=== PATIENT | female | born 1945 | race Caucasian/White ===

== ENCOUNTER → 2023-08-12 07:01 | Outpatient (REF) | payer MEDICARE, BC, SELFPAY | LOC: MRI 07:01 | PROVIDERS: ATTENDING PHYSICIAN Nurse Practitioner | DX: M79.605 Pain in left leg (principal) | CPT/HCPCS: 73721 ==

== ENCOUNTER → 2023-08-25 14:27 | Outpatient (REF) | payer MEDICARE, BC, SELFPAY | LOC: RAD 14:27 | PROVIDERS: ATTENDING PHYSICIAN Nurse Practitioner | DX: M79.605 Pain in left leg (principal) | CPT/HCPCS: 76882 ==

== ENCOUNTER → 2023-09-15 14:32 | Outpatient (REF) | payer MEDICARE, BC, SELFPAY | LOC: WDC 14:32 | PROVIDERS: ATTENDING PHYSICIAN Nurse Practitioner | DX: Z12.31 Encounter for screening mammogram for malignant neoplasm of breast (principal) | CPT/HCPCS: 77063; 77067 ==

== ENCOUNTER 2024-04-12 06:31 | Emergency (ER) | payer MEDICARE, BC, SELFPAY ==
[2024-04-12 06:44] VITALS: BP 133/86
--- NOTE | 2024-04-12 07:26 | ED.MUSCINJ ---
HPI-Injury
<JAMILA Frank - Last Filed: 04/12/24 09:00>
General
Chief Complaint: Fall
Source: patient
Time Seen by Provider: 04/12/24 07:10
History of Present Illness-Injury
Initial Injury comments:
This is a 78 y/o female without significant PMH who presents to the emergency department s/p fall. She fell out of bed @ 5:30am this morning onto the hardwood floor. She describes falling onto her L side but her head hit the hardwood first. She has
a hematoma on the L superior forehead without any active external bleeding. She denies any LOC, headache, neck pain and change in vision. Admits to L flank pain localized to the L lateral inframammary area. She has pain with inspiration. She
describes the pain as achy and severity of 5/10. Pt is not on blood thinners.
Past History
<JAMILA Frank - Last Filed: 04/12/24 09:00>
Past History
ED Past Medical History: Other (Kidney stones)
ED Past Surgical History: Bowel resection and Orthopedic (R rotator cuff repair 08/[address] Marquez here)
Social History
Tobacco: Non-smoker
Alcohol: Occasional
Drug: None
Personal:
Living: with family
Employment: Retired
Phy Exam
<Manuela Hernandez MIRANDA - Last Filed: 04/12/24 09:00>
Physical Exam
Physical Exam:
Skin: [place], soft, well-hydrated; skin turgor with instant recoil
Head: Scalp, pink freely moveable without tenderness; hematoma at L superior forehead with mild abrasion
Eyes: PERRLA; EOMI; no lid lag; red reflex present
Chest/Resp: muscle and respiratory effort symmetric without use of accessory muscles; vesicular breath sounds without adventitious sounds; even, quiet breathing; no ecchymosis or swelling; no tenderness to palpation
Heart: No lifts or heaves visible; regular rate and rhythm; No murmurs, rubs or gallops
PV: radial, dorsalis pedis and posterior tibial pulses all intact bilaterally
Neuro: AAO x 3
Injury Course
<ST ZacWA - Last Filed: 04/12/24 09:00>
Orders/Labs/Results
Orders:
Orders
04/12/24 06:49
CT Head W/o Iv Contrast Urgent
Comment:
Reason For Exam: fall
04/12/24 06:53
Ribs, Left 3 View W/PA Chest CR [CR Ribs-left 3 Vw W/pa Chest] Urgent
Comment:
Reason For Exam: fall
04/12/24 09:00
Acetaminophen [Tylenol] 1,000 mg PO NOW STA
<Jack Decker DO - Last Filed: 04/12/24 09:02>
Orders/Labs/Results
Orders:
Orders
04/12/24 06:49
CT Head W/o Iv Contrast Urgent
Comment:
Reason For Exam: fall
04/12/24 06:53
Ribs, Left 3 View W/PA Chest CR [CR Ribs-left 3 Vw W/pa Chest] Urgent
Comment:
Reason For Exam: fall
04/12/24 09:00
Acetaminophen [Tylenol] 1,000 mg PO NOW STA
<Manuela Hernandez [facility] - Last Filed: 04/12/24 09:00>
MDM/Problems Addressed
MDM/Problems Addressed:
Pt is an 78 y/o female who reports a fall out of bed this morning onto her L side and has associated L superior forehead hematoma and L flank pain. Pt denies LOC, TORRES, change in vision and any neck pain. Will obtain head CT to r/o bleed. Pt with L
flank pain and increased pain with inspiration. Will obtain xray of L ribs to r/o fracture.
Update: Head CT shows small L frontal scalp hematoma. Xray of ribs without fracture. Pt to be discharged and advised to take Tylenol at home.
<JAMILA Frank - Last Filed: 04/12/24 09:00>
*Critical Care Note
Total Time (30-74mins, 75-104mins- exclusive of procedures): Not Applicable
ED Attending Note
<JAMILA Frank - Last Filed: 04/12/24 09:00>
-
Portions of this chart may have been created with voice recognition software.� Occasional wrong word or��sound alike� substitutions may have occurred due to the inherent limitations of voice recognition software.
<Jack Decker DO - Last Filed: 04/12/24 09:02>
ED Attending Note
Patient seen and examined by attending physician: Yes
I performed a history and physical exam of patient and discussed management with resident, I reviewed resident's note and agree with documented findings and plan of care.: Yes
ED Attending Note:
I evaluated the patient at bedside. The patient does have a left-sided forehead hematoma. CAT scan of the brain was obtained given her advanced age and there is no sign of intracranial hemorrhage. She also reports pain to the lower anterior left
side of the chest. There is no left upper quadrant tenderness on physical examination. Plain film imaging of the ribs and chest are unremarkable. She declined narcotic analgesia. Gave Tylenol for pain. I personally reviewed imaging studies. I
reviewed old records, the patient was seen here for physical therapy in 2017 related to neck pain. On reassessment at 9 AM, the patient is comfortable in appearance but does report some discomfort with breathing.
Discharge Plan
Departure
Patient Disposition: Home (Routine Discharge)
Date of Disposition: 04/12/24
Time of Disposition: 08:58
Patient with high blood pressure during this ER visit?: Yes
Discharge Problem:
Hematoma, Head injury, Chest wall contusion
Instructions: Head Injury in Adults (DC), Contusion (DC), BLOOD PRESSURE
Prescriptions:
No Action
multivitamin [Daily Multiple] 1 EACH tablet
1 ea PO DAILY
hydrocodone-acetaminophen [Vicodin] 1 EACH tablet
1 ea PO Q4HPRN PRN (Reason: Pain) Qty: 10 0RF
tamsulosin 0.4 MG capsule
0.4 mg PO DAILY Qty: 10 0RF
ondansetron 4 MG tablet,disintegrating
4 mg PO TIDPRN PRN (Reason: NAUSEA) Qty: 10 0RF
hydrocodone-acetaminophen [Vicodin] 1 EACH tablet
1 ea PO Q6HPRN PRN (Reason: pain) Qty: 15 0RF
Referrals:
Ibeth Barbour CRNP [Family Provider] -
Activity Restrictions/Additional Instructions:
The CAT scan of the brain shows no bleeding around the brain. The x-ray of the ribs and chest showed no sign of rib fracture or injury to the lung. Tylenol would be safest for pain. You can take 2 extra strength Tylenol 4 times per day over the
next few days. Return here if worse or other concerns. Follow-up your primary care doctor.
Interventions
Interventions:
*Risk Screen - Suicide Last Done: 04/12/24 06:44
*General Assessment Last Done: 04/12/24 06:44
*Neglect/Abuse Screening Last Done: 04/12/24 06:44
*ED COVID-19 Vaccine History Last Done: 04/12/24 06:44
ED-Musculoskeletal Assessment Last Done: 04/12/24 07:44
ED- Neurological Assessment Last Done: 04/12/24 07:42
ED-Skin Assessment Last Done: 04/12/24 07:43
Discharge Date and Time
Print Language: ROMANIAN
[2024-04-12 07:40] VITALS: BP 164/76
[2024-04-12 07:41] VITALS: BMI 23.8
[2024-04-12 08:00] VITALS: BP 156/87
[2024-04-12 09:00] VITALS: BP 147/80
[2024-04-12] MEDS: TYLENOL 1000 MG PO (09:10)
[2024-04-12 10:30] VITALS: BP 147/80
== END 2024-04-12 10:30 | disposition home or self-care (01) ==
LOC: EMR 06:31
PROVIDERS: EMERGENCY PHYSICIAN Emergency Medicine; FAMILY PHYSICIAN Nurse Practitioner
DX: S00.83XA Contusion of other part of head, initial encounter (principal); S20.219A Contusion of unspecified front wall of thorax, initial encounter; S00.81XA Abrasion of other part of head, initial encounter; W06.XXXA Fall from bed, initial encounter
CPT/HCPCS: 99284; 70450; 71101

== ENCOUNTER → 2024-09-19 10:59 | Outpatient (REF) | payer MEDICARE, BC, SELFPAY | LOC: WDC 10:59 | PROVIDERS: ATTENDING PHYSICIAN Nurse Practitioner | DX: Z12.31 Encounter for screening mammogram for malignant neoplasm of breast (principal) | CPT/HCPCS: 77063; 77067 ==

== ENCOUNTER 2024-10-13 01:58 | Emergency (ER) | payer MEDICARE, BC, SELFPAY ==
[2024-10-13 01:58] VITALS: BP 145/93
--- NOTE | 2024-10-13 02:34 | ED.GENMED ---
History of Present Illness
General
Chief Complaint: Eye Problems
Source: patient
Exam Limitations: none
Time Seen by Provider: 10/13/24 02:13
Nursing documentation reviewed up to this point in time: agreed with
History of Present Illness
History of Present Illness:
Patient presents to ED secondary to persistent left eye irritation, after accidentally applying 2-3 drops of her steroid solution into her eye, instead of her normal eyedrops. Since then, she has irrigated the affected eye with water, with mild
improvement. Denies eye trauma. Denies previous history of similar symptoms. Denies blurred vision. Denies headache.
Past History
Past History
ED Past Medical History: Other (Kidney stones)
ED Past Surgical History: Bowel resection and Orthopedic (R rotator cuff repair 08/[address] Marquez here)
Social History
Tobacco: Non-smoker
Alcohol: Occasional
Drug: None
Personal:
Living: with family
Employment: Retired
Review of Systems
Review of Systems
Allergies reviewed?: Yes
All Other Systems: ROS reviewed and negative except as documented in HPI and ROS
Constitutional: Reports no symptoms
EENT: Reports other (Eye pain with redness)
Musculoskeletal: Reports no symptoms
Skin: Reports no symptoms
Neurological: Reports no symptoms; Denies dizzy or headache
Phy Exam
Physical Exam
Physical Exam:
Physical Exam
General: mild distress, not acutely ill. afebrile.
Head: nc/at. eomi. perrla. conjunctiva normal, without erythema.
Neck: supple. no meningeal signs.
Neuro: alert and oriented x 3. no focal neurological deficits
Skin: no rash
Psychiatric: well kept. interactive and cooperative
Extremities: no edema. no calf tenderness.
Course
Orders/Labs/Results
Orders:
Orders
10/13/24 03:32
Tetracaine HCl [Tetracaine 0.5% Ophthalmic Solution] See Dose Instructions OPHTH ONCE ONE
Vital Signs
Initial and Last Documented VS:
Initial Vital Signs
Temp Pulse BP Pulse Ox
98.3 F 80 145/93 97
10/13/24 01:58 10/13/24 01:58 10/13/24 01:58 10/13/24 01:58
Last Documented Vital Signs
Temp Pulse Resp BP Pulse Ox
98.3 F 82 16 152/90 97
10/13/24 01:58 10/13/24 03:58 10/13/24 03:58 10/13/24 03:58 10/13/24 03:58
MDM/Problems Addressed
MDM/Problems Addressed:
History and exam consistent with minor chemical irritation of left eye, without any acute visual changes nor exam findings concerning for significant injury. Moses lens applied with 500 mL normal saline irrigation provided, with significant
improvement of symptoms. Patient will be discharged home in stable condition, with recommendation to follow-up with her curriculum developer for reevaluation next week.
Visual acuity checked
*Pulse Oximetry
SaO2: 97
Oxygen Mode of Delivery: Room air
Patient hypoxic: no
*Critical Care Note
Total Time (30-74mins, 75-104mins- exclusive of procedures): Not Applicable
ED Attending Note
-
Portions of this chart may have been created with voice recognition software.� Occasional wrong word or��sound alike� substitutions may have occurred due to the inherent limitations of voice recognition software.
Discharge Plan
Departure
Patient Disposition: Home (Routine Discharge)
Date of Disposition: 10/13/24
Time of Disposition: 03:33
Patient with high blood pressure during this ER visit?: Yes
Condition: Good
Discharge Problem:
Chemical injury of left eye
Instructions: Chemical Eye Injury ED
Prescriptions:
No Action
multivitamin [Daily Multiple] 1 EACH tablet
1 ea PO DAILY
hydrocodone-acetaminophen [Vicodin] 1 EACH tablet
1 ea PO Q4HPRN PRN (Reason: Pain) Qty: 10 0RF
tamsulosin 0.4 MG capsule
0.4 mg PO DAILY Qty: 10 0RF
ondansetron 4 MG tablet,disintegrating
4 mg PO TIDPRN PRN (Reason: NAUSEA) Qty: 10 0RF
hydrocodone-acetaminophen [Vicodin] 1 EACH tablet
1 ea PO Q6HPRN PRN (Reason: pain) Qty: 15 0RF
Referrals:
Ashleigh Martinez MD [Family Provider, Internal Medicine]
Activity Restrictions/Additional Instructions:
As discussed, please follow-up with your primary care physician and/or curriculum developer with any further concerns.
Interventions
Interventions:
*Risk Screen - Suicide Last Done: 10/13/24 02:04
*General Assessment Last Done: 10/13/24 02:08
*Neglect/Abuse Screening Last Done: 10/13/24 02:08
*ED- Fall Risk Assessment Last Done: 10/13/24 02:08
*ED COVID-19 Vaccine History Last Done: 10/13/24 02:08
*Nursing Disposition Last Done: 10/13/24 03:58
Discharge Date and Time
Discharge Date/Time: 10/13/24 03:59
Print Language: CZECH
[2024-10-13] MEDS: TETRACAINE 0.5% OPHTHALMIC SOLUTION 1 DROP OPHTH (03:56)
[2024-10-13 03:58] VITALS: BP 152/90
== END 2024-10-13 03:59 | disposition home or self-care (01) ==
LOC: EMR 01:58
PROVIDERS: EMERGENCY PHYSICIAN Emergency Medicine; FAMILY PHYSICIAN Internal Medicine
DX: S05.92XA Unspecified injury of left eye and orbit, initial encounter (principal); X58.XXXA Exposure to other specified factors, initial encounter; Z87.442 Personal history of urinary calculi
CPT/HCPCS: 99282